=== PATIENT | female | born 1955 | race Caucasian/White ===

== ENCOUNTER 2016-10-28 05:00 | Inpatient (IN) | payer BC ==
[2016-10-27 11:40] VITALS: BP 133/68
[2016-10-28] VITALS (8 sets, daily range): BP systolic 119–150; BP diastolic 60–92
[~2016-10-28] VITALS: Ht 172.7 cm; Wt 77.1 kg
--- NOTE | ~2016-10-28 | HC ---
[facility] [place] [address] CONSULTATION Name: SALOMELUKASZ Mann Room #: 533-P [facility] .R.#: [id number] Admission: 10/28/16 Attend Phys: Stephan Malik MD Discharge: Date of : 51 Report #: [id number] THIS REPORT FOR: //name// CC: Stephan Flores Consult has been requested by Dr. Malik for medical management postoperatively. HISTORY OF PRESENT ILLNESS: The patient is a 60-year-old female with history of severe arthritis, bilateral hip replacement in the past, knee replacement who was admitted today for an elective left total hip revision arthroplasty. The patient is seen postoperatively in the room. The patient denies any nausea or vomiting. No chest pain, no dizziness, no palpitations, no shortness of breath. She complains of pain at the surgical site. PAST MEDICAL HISTORY: No hypertension, no diabetes, no coronary artery disease, no CVA. She has a history of hysterectomy, history of bilateral hip replacement and knee replacement. No history of any peptic ulcer disease or bleeding disorder. ALLERGIES: She has multiple allergies. She is allergic to LEVOFLOXACIN, causes hallucination. OXYCODONE causes hallucination. PSEUDOEPHEDRINE causes tachycardia. ____ causes rash. ERYTHROMYCIN causes diarrhea. MORPHINE causes itching. Presently, she is on a fentanyl drip and seems to be doing okay on fentanyl TREE DRILLER. HOME MEDICATIONS: Include multivitamin and Arthrotec. SOCIAL HISTORY: No smoke, alcohol abuse, or illicit drug abuse. FAMILY HISTORY: Significant for hypertension. REVIEW OF SYSTEMS: CONSTITUTIONAL: No recent weight loss or weight gain. EYES: No change in vision. THROAT: Denies any sore throat. CARDIOVASCULAR: No chest pain, dizziness, palpitations. RESPIRATORY: No cough, expectoration. GASTROINTESTINAL: No nausea, vomiting. GENITOURINARY: No dysuria, hematuria. NEUROLOGIC: No focal numbness or weakness of the extremities. PSYCHIATRIC: No anxiety or depression. A 12-point review of system is negative other than the positive and negative dictated in the history of present illness and the review of system. PHYSICAL EXAMINATION: VITAL SIGNS: Blood pressure is 127/74, heart rate of 86 per minute, afebrile. [facility] [address] [place] [address] CONSULTATION Name: LUKASZ MCMAHON Room #: 533-P [facility].#: [id number] Admission: 10/28/16 Attend Phys: Stephan Malik MD Discharge: Date of : 51 Report #: [id number] GENERAL: The patient is awake and alert, not in acute respiratory distress. HEENT: Pupils equal, reactive to light, nonicteric, conjunctivae. NECK: Supple, no JVD, no bruit, no lymphadenopathy. CARDIOVASCULAR: S1, S2, negative S3, no murmur. CHEST: Bilateral air entry present. Clear on auscultation. ABDOMEN: Soft, bowel sounds present, no mass, no organomegaly, no tenderness. PERIPHERY: No pedal edema. No calf tenderness. Dorsalis pedis 1+. NEUROLOGICAL: No gross motor or sensory deficit in the upper extremity, did not test on the lower extremity. Labs reviewed. Labs done on 10/03/2016 showed a hemoglobin of 13.6, white count of ____, platelet of 363. Coagulation studies are normal. BUN and creatinine are normal on 09/23/2016. ASSESSMENT AND PLAN: Status post left hip arthroplasty. The patient will be continued on pain control on the fentanyl TREE DRILLER as per Dr. Malik. She will be on Xarelto as per Dr. Malik's recommendation. We will repeat the labs in the morning. The patient does not have any extensive past medical history. We will follow up on her labs and repeat the labs in the morning to make sure renal functions are normal. Treatment plan has been explained to the patient in detail. <ELECTRONICALLY SIGNED> By: Wally Campos MD 10/29/16 1323 1715 [id number] Wally Campos MD /nt
--- NOTE | ~2016-10-28 | O ---
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 POSTOPERATIVE DIAGNOSIS: Failed left total hip arthroplasty. PROCEDURE: Revision left total hip arthroplasty. SURGEON: Stephan Malik MD. INDICATIONS: This 60-year-old female underwent left total hip replacement about 8 or 9 years ago by another surgeon. She initially did well, but gradually developed increasing hip pain. Clinical and radiographic evaluation confirmed failure of the previous hip arthroplasty with obvious loosening of the acetabular component. A single acetabular screw has fractured and the acetabular component is dislodged and displaced laterally. The femoral stem appears to still be well seated in the femur. We have discussed preoperatively treatment options and elected to go ahead with revision surgery. Preoperative joint aspiration revealed inflammatory fluid, but no evidence of infection. We discussed the potential risks of surgery including neurologic or vascular injury, leg length inequality, hip instability or future joint infection. The patient and her understand well. She finds she can no longer tolerate the progressive discomfort as the acetabular component was clearly loose and unstable at this point. DESCRIPTION OF PROCEDURE: The patient was taken to the operating room where she was placed under general anesthesia. Prophylactic intravenous antibiotics were administered. She was turned to the right lateral decubitus position, so the left hip, thigh and leg could be well visualized. The hip and leg were meticulously prepped and draped. A skin incision was made through the old surgical scar at the lateral aspect of the hip extending slightly posteriorly. This was extended through subcutaneous tissues and fascia exposing the posterior aspect of the hip. The previous posterior repair appeared to be a fairly solid and a sharp direct dissection was carried down to the posterior aspect of the femur. This opened the joint nicely and there was a fair amount of joint fluid. This was consistent with inflammatory fluid. There was no evidence of purulence. A specimen was sent for culture; however. Once a good exposure of the posterior aspect of the hip was established, the acetabular component could be well visualized and was obviously loosened and dislodged and quite unstable. The head on the femoral component was removed without difficulty. The old [address] [address] OPERATIVE REPORT Name: LUKASZ MCMAHON Room #: 533-P [facility] [place] [facility]#: [id number] Admission: 10/28/16 Attend Phys: Stephan Malik MD Discharge: 10/31/16 Date of : 51 Report #: [id number] component is a [employer] component and has a modular configuration. I gently attempted to remove the neck component anticipating this would allow better visualization of the acetabulum and might allow some adjustment with regard to the reconstruction. The component, however, was clearly very solidly lodged and the Abernathy taper would not disengage despite moderately aggressive attempts and a removal instrument which had been presented by [employer]. At this point, I felt my options were either to be much more aggressive, possibly damaging the Abernathy taper neck, which would mean I could no longer use the stem or stood along until I could remove the entire stem and start a new or accept the current stem, which seemed to be solid and simply replace the head. I felt this lateral approach was the safest and most reasonable given the current findings. At this point, the femur and femoral neck portion of the components were carefully protected but distracted and rotated in a fashion sufficient to allow adequate exposure of the acetabulum. The acetabular component was clear loose and was removed without much difficulty. There was 1 fractured screw with the distal aspect still engaged in the acetabulum. This was not loose and required some work to disengage using a screw removal drill. Once adequate bone had been removed from around the margin of the screw, it could be loosened then removed without much difficulty. This did not seem to penetrate through the inner acetabular wall. The exposed acetabulum demonstrated some bone loss at the superior and posterior aspect; however, there is still fairly good bone in the medial aspect of the acetabulum and it seemed that a standard reconstruction acetabular component would be acceptable. Once satisfactory exposure was established, the acetabulum was carefully reamed using spherical reamers, gradually advancing to a size 50 mm reamer. The acetabulum was reamed medially creating a much better and more spherical cahto acetabulum and preserving as much bone at the superior and posterior aspect as possible. A trial acetabulum was placed using a 51 mm trial component and this seated quite nicely and appeared to be secure. The previous component had been a 52 mm acetabulum and I anticipated we will probably need to move up at least 1 size; however, at this point, I felt further reaming would cause more damage to the superior and posterior acetabular rim and the trial component seemed to fit nicely and appeared to be secure. Given this, I felt a new 52 mm diameter acetabular shell was going to work acceptably. A [employer] acetabular shell was then selected using a 52 mm diameter. This was impacted into position attempting to align this with her cahto acetabulum and in alignment with the current acetabular rim to achieve satisfactory fixation. This component seemed to seat nicely. It was then secured with 3 screws placed through the apex of the shell. Each seemed to have excellent purchase and secured the metal acetabular shell in good position. Some of the reamings were placed behind the shell primary to its positioning and hopefully, this will fill in nicely with a few of the defects and areas of cystic deterioration in the acetabulum. At this point, a metal insert was placed in the acetabular shell and this seated nicely and appeared to be secure. A trial reduction was then performed using the previous [employer] stem and [facility] [address] [place] [address] OPERATIVE REPORT Name: LUKASZ MCMAHON Room #: 533-P [facility] [place] M.R.#: [id number] Admission: 10/28/16 Attend Phys: Stephan Malik MD Discharge: 10/31/16 Date of : 51 Report #: [id number] adjusting the neck length on the head appropriately. The previous component had been a -3 mm neck length. The acetabular reaming had significantly medialized the acetabulum and I believe the new component has less lateralization of the acetabulum than the previous right component. Consequently, I needed a much longer neck. We trialed a 7 mm and a 10 mm and it seemed that the 10 mm was most appropriate. Even with this much longer neck length, there was still enough laxity that I could shuck the joint out distally several millimeters and demonstrated a good hip extension and good adduction without any evidence of flexion contracture nor excessively tight the capsule. With this trial reduction and a bipolar type head, the hip seemed to be quite stable and demonstrated good range of motion and no evidence of flexion contracture. The trial head and neck were then removed and the permanent [employer] bipolar head was then placed over the [employer] 28 mm head and neck component using a +10 mm neck length. This was then impacted on to the Abernathy taper of the previous [employer] femoral stem and it seated nicely and appeared to be secure. The hip was reduced. Alignment, range of motion, stability and leg length were assessed and felt to be satisfactory. Overall, stability of the construct appeared to be good and there was no evidence of subluxation or instability and the acetabular component appeared to be well supported by surrounding periacetabular bone. At this point, the entire wound was copiously irrigated. Good hemostasis was established. The remaining capsule and posterior ligament structures were repaired as 1 unit back to the bone at the posterior aspect of the greater trochanter and down to the femoral neck. This resulted in additional hip stability, but allowed good range of motion without any apparent problems. One Hemovac was left in the wound with the distal tail of the Hemovac extending down into the hip joint and the remainder in the deep tissues above the capsule closure. Once this was in position, the fascia was then closed with multiple #1 Vicryl sutures. The subcutaneous tissues were closed with 0 Monocryl. The skin was closed with skin cortez. A sterile dressing was applied. The patient was then awakened and returned to recovery room in good condition. <ELECTRONICALLY SIGNED> By: Stephan Malik MD 11/05/16 0945 [id number] Stephan Malik MD /nt
--- NOTE | ~2016-10-28 | H ---
[facility] [address] [place] [address] HISTORY AND PHYSICAL Name: LUKASZ MCMAHON Room #: 533-P [facility] [place] M.R.#: [id number] Admission: 10/28/16 Attend Phys: Stpehan Malik MD Discharge: 10/31/16 Date of : 51 Report #: [id number] THIS REPORT FOR: //name// For History and Physical, please see office documentation/handwritten note in the patient's medical record. <ELECTRONICALLY SIGNED> By: Stephan Malik MD 11/05/16 0945 1504 Stephan Malik MD /
[~2016-10-28 05:00] MED LIST: ALLERGY RELIEF4 MG PO; APAP500 PO; ARTHROTEC 75 T1 EAC1 OR; BENADRYL ALLERG25 MG OR; CALCIUM CITRAT1 EA14 PO; CALCIUM OYSTER500 MG OR; CENTRUM SILVER1 EAC4 PO; CENTRUM TABLET1 TAB OR; COUMADIN 2 MG TA2 M1 PO; FISH PO; FISHOIL OR; FLAX PO; FLONASE 0.05%50 MCG NASAL; HYDROCODON-ACE1 EAC5 PO; HYDROCODONE-AP1 EAC6 PO; MAGNESIUM100 MG PO; POTASSIUM99 M2 PO; TURMERIC500 M1 PO; VITAMIN D400 UNI1 OR; ZYRTEC10 M5 PO; [UNRECOGNIZED DRUG - OTHER] OR; [UNRECOGNIZED DRUG - OTHER] PO
[2016-10-29 05:42] LABS: ABSOLUTE NEUTROPHILS 6.8 thou/uL (1.4-8.2); BASOPHILS 0.6 % (0.0-2.0); EOSINOPHILS 0.3 % (0.0-3.0); HEMATOCRIT 30.1 % (37.0-47.0); HEMOGLOBIN 10.1 gm/dL (12.0-15.0); MCH 29.9 pg (26.0-34.0); MCHC 33.6 % (28.0-37.0); MONOCYTES 6.9 % (1.0-8.0); PLATELET COUNT 241 thou/uL (150-400); POLYS 78.2 % (36.0-66.0); RBC 3.38 mil/uL (4.20-5.00); RDW 12.9 % (10.5-14.5); WBC 8.7 thou/uL (4.0-11.0)
[2016-10-29 05:54] LABS: MANUAL DIFF NO
[2016-10-29 06:03] LABS: CALCIUM 8.3 mg/dL (8.5-10.1); CREATININE 0.7 mg/dL (0.6-1.3); MAGNESIUM 1.9 mg/dL (1.8-2.4); POTASSIUM 3.7 mmol/L (3.5-5.1)
[2016-10-29 07:05] VITALS: BP 126/66
[2016-10-29 16:55] VITALS: BP 103/56
[2016-10-29 20:40] VITALS: BP 112/66
[2016-10-30 04:00] VITALS: BP 121/66
[2016-10-30 06:15] LABS: HEMATOCRIT 28.2 % (37.0-47.0); HEMOGLOBIN 9.4 gm/dL (12.0-15.0); MCH 29.4 pg (26.0-34.0); MCHC 33.2 % (28.0-37.0); MCV 88.7 fL (80.0-100.0); RBC 3.18 mil/uL (4.20-5.00); RDW 12.7 % (10.5-14.5); WBC 11.3 thou/uL (4.0-11.0)
[2016-10-30 07:21] VITALS: BP 117/62
[2016-10-30 15:48] VITALS: BP 111/61
[2016-10-30 16:28] VITALS: BP 156/83
[2016-10-30 20:00] VITALS: BP 117/56
[2016-10-31 04:00] VITALS: BP 117/59
[2016-10-31 04:26] LABS: HEMATOCRIT 27.4 % (37.0-47.0); HEMOGLOBIN 9.2 gm/dL (12.0-15.0); MCH 29.8 pg (26.0-34.0); MCHC 33.6 % (28.0-37.0); MCV 88.7 fL (80.0-100.0); RBC 3.09 mil/uL (4.20-5.00); RDW 12.9 % (10.5-14.5); WBC 9.5 thou/uL (4.0-11.0)
[2016-10-31 07:10] VITALS: BP 133/68
== END 2016-10-31 12:55 | disposition home or self-care (01) | DRG 468 ==
LOC: TBA 05:00 → 5S 05:00 → PRE 09:12 → 5S 11:44 → PRE 15:12 → 5S 10-31 12:55
PROVIDERS: Internal Medicine; Orthopaedic Surgery
PROC: 0SPB0JZ Removal of Synthetic Substitute from Left Hip Joint, Open Approach (ICD-10-PCS; principal; 2016-10-28)
PROC: 0SRB01A Replacement of Left Hip Joint with Metal Synthetic Substitute, Uncemented, Open Approach (ICD-10-PCS; principal; 2016-10-28)
DX: T84.011A Broken internal left hip prosthesis, initial encounter (principal); Z96.643 Presence of artificial hip joint, bilateral; Z96.659 Presence of unspecified artificial knee joint; Z88.6 Allergy status to analgesic agent; Z88.8 Allergy status to other drugs, medicaments and biological substances; Z88.1 Allergy status to other antibiotic agents; Z90.710 Acquired absence of both cervix and uterus; Z82.49 Family history of ischemic heart disease and other diseases of the circulatory system; Z79.01 Long term (current) use of anticoagulants; Y83.8 Other surgical procedures as the cause of abnormal reaction of the patient, or of later complication, without mention of misadventure at the time of the procedure; Y92.89 Other specified places as the place of occurrence of the external cause
CPT/HCPCS: 10086; 50010; 50101; 50382; 50414; 51412; 51771; 55389; 56521; 56525; 56527; 62110; 62900; 70005